=== PATIENT | male | born 1955 | race Caucasian/White ===

== ENCOUNTER 2017-06-13 15:35 | Emergency (ER) | payer OTHER ==
[2017-06-13 18:10] LABS: BASOPHILS 0.4 % (0-2); EOSINOPHILS 2.3 % (0-7); HEMATOCRIT 49.2 % (42.0-54.0); HEMOGLOBIN 16.9 g/dL (13.5-17.5); IMMATURE GRANULOCYTES 0.3 % (0-5); LYMPHOCYTES 15.7 % (15-50); MCH 30.1 pg (26.0-34.0); MCHC 34.3 g/dL (31.0-37.0); MCV 87.5 fL (80.0-100.0); MEAN PLATELET VOLUME 12.1 fL (7.4-10.4); MONOCYTES 5.8 % (2-11); NEUTROPHILS 75.5 % (40-80); PLATELET COUNT 226 10x3/uL (130-400); RBC 5.62 10x6/uL (4.20-6.10); RDW 12.8 % (11.5-14.5); WBC 9.4 10x3/uL (4.8-10.8)
[2017-06-13 18:14] LABS: ALBUMIN 3.6 g/dL (3.4-5.0); ANION GAP 19.5 mmol/L (8-16); BILIRUBIN - TOTAL 0.37 mg/dL (0.2-1.3); CARBON DIOXIDE 20.9 mmol/L (21.0-32.0); CREATININE - SERUM 1.2 mg/dL (0.6-1.3); POTASSIUM - SERUM 4.4 mmol/L (3.5-5.1)
== END 2017-06-13 18:25 | disposition left against medical advice (07) ==
LOC: D.ER 15:35
PROVIDERS: Nurse Practitioner Family
DX: R07.9 Chest pain, unspecified (principal); R79.89 Other specified abnormal findings of blood chemistry; E11.9 Type 2 diabetes mellitus without complications; F17.200 Nicotine dependence, unspecified, uncomplicated